=== PATIENT | male | born 1960 | race Caucasian/White ===

== ENCOUNTER 2017-12-29 11:19 | Emergency (ER) | payer OTHER ==
[~2017-12-29] VITALS: Ht 175.3 cm; Wt 81.7 kg
[2017-12-29] MEDS ORDERED: OSELB75 PO (11:36)
[2017-12-29] MEDS ORDERED: PREDNISONE 10 M10 MG PO (12:48)
[2017-12-29] MEDS ORDERED: TESSALON PERLE100 MG PO (12:48)
[2017-12-29 12:58] VITALS: BP 116/79
== END 2017-12-29 12:59 | disposition home or self-care (01) ==
LOC: M.ERS 11:19
DX: J11.1 Influenza due to unidentified influenza virus with other respiratory manifestations (principal)